=== PATIENT | male | born 1990 | race Caucasian/White ===

== ENCOUNTER 2019-10-14 23:24 | Emergency (ER) | payer OTHER ==
[~2019-10-14] VITALS: Ht 177.8 cm; Wt 68.0 kg
[2019-10-14 23:32] VITALS: BP 127/78
--- NOTE | 2019-10-14 23:50 | NUR ---
29 Y/M PRESENTS TO ED FOR LEFT AC ABCESS FOLLOW UP. PT WAS SEEN IN [place] X 4 DAYS AGO AND HAD AN I&D. AT THE TIME OF THE PTS VISIT IN [place] THERE WAS TOO MUCH EDEMA THAT THE MORE LATERAL ABCESS WAS MISSED. PT REPORTS 3/10 PAIN RADIATING ALL THROUGHOUT THE AC AND ELBOW. PT REPORTS METH AND HEROINE ABUSE. PT DENIES FEVER, CHILLS, NAUSEA, VOMITING OR DIARRHEA. PMH- DENIES NKDA
--- NOTE | 2019-10-14 23:53 | NUR ---
DR. MACIEL AT BEDSIDE.
[2019-10-15] MEDS ORDERED: LIDOCAINE/EPI 1% 1:100000 20 ML VIAL INJ ONE
[2019-10-15] MEDS ORDERED: SULFAMETH/TRIMETH DS 800/160MG 1 TAB PO ONE
[2019-10-15] MEDS ORDERED: CLINDAMYCIN 600 MG/4 ML VIAL IM ONE
--- NOTE | 2019-10-15 00:23 | NUR ---
DR. MACIEL AT BEDSIDE FOR INCISION AND DRAINAGE.
--- NOTE | 2019-10-15 00:25 | NUR ---
WOUND EDEMATOUS AND WARM TO TOUCH. 2 ABCESS ONE IN THE AC ABOUT HALF INCH DEEP THAT WAS DRAINED AND ONE MORE LATERAL.
[2019-10-15 00:36] VITALS: BP 127/78
--- NOTE | 2019-10-15 00:36 | NUR ---
Patient discharged with v/s stable. Written and verbal after care instructions given and explained. Patient verbalized understanding. Ambulatory with steady gait. All questions addressed prior to discharge. Advised to follow up with PMD.
== END 2019-10-15 00:36 | disposition home or self-care (01) ==
LOC: MED 23:24
DX: L02.414 Cutaneous abscess of left upper limb (principal); F11.90 Opioid use, unspecified, uncomplicated; F15.10 Other stimulant abuse, uncomplicated; Z48.00 Encounter for change or removal of nonsurgical wound dressing
CPT/HCPCS: 10060; 96372; 99283; J2001; J3490

== ENCOUNTER 2020-01-01 22:38 | Emergency (ER) | payer OTHER ==
[~2020-01-01] VITALS: Ht 177.8 cm; Wt 68.0 kg
[2020-01-01 22:42] VITALS: BP 138/84
[2020-01-01] MEDS ORDERED: LIDOCAINE 2% 1000 MG/50 ML VIAL INJ ONE (23:00)
[2020-01-01] MEDS ORDERED: IBUPROFEN 800 MG TAB PO ONE (23:25)
[2020-01-01] MEDS ORDERED: SULFAMETH/TRIMETH DS 800/160MG 1 TAB PO ONE (23:25)
[2020-01-01] MEDS ORDERED: CEPHALEXIN 500 MG CAP PO ONE (23:25)
[2020-01-01 23:44] VITALS: BP 138/84
== END 2020-01-01 23:45 | disposition home or self-care (01) ==
LOC: MED 22:38
DX: L02.416 Cutaneous abscess of left lower limb (principal); F12.90 Cannabis use, unspecified, uncomplicated
CPT/HCPCS: 10060; 99284; J2001

== ENCOUNTER 2021-07-19 17:43 | Emergency (ER) | payer MEDICAID, OTHER ==
[~2021-07-19] VITALS: Ht 180.3 cm; Wt 68.0 kg
[2021-07-19 17:49] VITALS: BP 155/81
[2021-07-19] MEDS ORDERED: KETOROLAC 30 MG/ML VIAL IM ONE (18:00)
--- NOTE | 2021-07-19 18:29 | NUR ---
31/M [facility] PD FOR MEDICAL CLEARANCE. PER PD PATIENT HAS A LEFT UPPER LEG ABSCESS. PATIENT STATES ABSCESS HAS BEEN PRESENT FOR THE PAST 4 DAYS BUT STATES HAS WORSENED IN THE LAST 24 HOURS. PATIENT REPORTS 5/10 PAIN THAT WORSENS WITH TOUCHING OF SITE, ABSCESS APPEARS TO HAVE BEEN DRAINING ON ITS OWN, DENIES TAKING ANYTHING FOR PAIN.
[2021-07-19] MEDS ORDERED: cefTRIAXone 500 MG in LIDOCAINE MPF 1% 1 ML IM ONE (18:45)
[2021-07-19] MEDS ORDERED: BACITRACIN OINT 500 UNITS/GM PKT TP ONE (18:50)
[2021-07-19] MEDS ORDERED: BACI1PAC6 TP (18:53)
[2021-07-19] MEDS ORDERED: SULF-59 PO (18:53)
[2021-07-19] MEDS ORDERED: NAPR-54 PO (18:53)
[2021-07-19] MEDS ORDERED: CEPH-588 PO (18:53)
[2021-07-19] MEDS ORDERED: LIDOCAINE MPF 1% 5 ML ONE (19:00)
[2021-07-19] MEDS ORDERED: cefTRIAXone 500 MG VIAL ONE (19:00)
[2021-07-19 19:09] VITALS: BP 155/81
--- NOTE | 2021-07-19 19:10 | NUR ---
Patient discharged with v/s stable. Written and verbal after care instructions given and explained. Patient alert, oriented and verbalized understanding of instructions. Police with in custody. All questions addressed prior to discharge. ID band removed. Patient advised to follow up with PMD. Rx of sulfamethoxazole, naproxen, cpehalexin, bactiracin given. Patient educated on indication of medication including possible reaction and side effects. Opportunity to ask questions provided and answered.
== END 2021-07-19 19:07 ==
LOC: MED 17:43
DX: L02.415 Cutaneous abscess of right lower limb (principal)
CPT/HCPCS: 73502; 96372; 99284; J0696; J1885; J2001